=== PATIENT | female | born 1935 | race African-American/Black ===

== ENCOUNTER 2024-01-13 21:28 | Inpatient (IN) | payer BC ==
[~2024-01-13] VITALS: Ht 157.5 cm; Wt 84.8 kg
[2024-01-13 21:34] VITALS: O2SAT 100
[2024-01-13 22:21] LABS: BASOPHILS % 0.7 % (0.0-2.0); EOSINOPHILS % 0.9 % (0.0-5.0); HEMATOCRIT. 40.6 % (36.0-48.0); HEMOGLOBIN. 13.2 g/dL (12.0-16.0); LYMPHOCYTES % 33.1 % (20.0-50.0); MEAN CORPUSCULAR HEMOGLOBIN 29.3 pg (28.0-32.0); MEAN CORPUSCULAR HGB CONC 32.4 g/dL (31.0-37.0); MEAN CORPUSCULAR VOLUME 90.3 fL (81.0-99.0); MEAN PLATELET VOLUME 10.8 fl (7.4-10.4); MONOCYTES % 11.8 % (2.0-8.0); NEUTROPHILS % 53.5 % (40.0-76.0); PLATELET 142 x1000/uL (130-400); RED CELL DISTRIBUTION WIDTH 15.8 % (11.6-14.6); WHITE BLOOD COUNT 7.2 x1000/uL (4.5-11.0)
[2024-01-13 22:28] LABS: PROTHROMBIN TIME 10.9 sec (9.6-11.0)
[2024-01-13 22:31] LABS: ALANINE AMINOTRANSFERASE 21 IU/L (10-49); ALBUMIN 3.9 g/dL (3.2-4.8); ASPARTATE AMINOTRANSFERASE 31 IU/L (<34); BILIRUBIN TOTAL 0.3 mg/dL (0.1-1.0); CALCIUM 8.2 mg/dL (8.7-10.4); CARBON DIOXIDE 24 mEq/L (21-32); CHLORIDE 108 mEq/L (98-107); GLUCOSE 80 mg/dL (70-105); POTASSIUM 4.9 mEq/L (3.5-5.1); PROTEIN TOTAL 6.9 g/dL (6.0-8.3); SODIUM 137 mEq/L (136-145); UREA NITROGEN BLOOD 21 mg/dL (9-23)
[2024-01-13 22:32] LABS: TROPONIN I HIGH SENSITIVITY < 4 ng/L (3.0-34)
[2024-01-14 00:06] LABS: TROPONIN I HIGH SENSITIVITY < 4 ng/L (3.0-34)
[2024-01-14 01:25] LABS: TROPONIN I HIGH SENSITIVITY < 4 ng/L (3.0-34)
[2024-01-14] MEDS ORDERED: ALEN70TA79 PO (10:05)
[2024-01-14] MEDS ORDERED: HYDR-4005 PO (10:21)
[2024-01-14] MEDS ORDERED: ATOR20TA65 PO (10:21)
[2024-01-14] MEDS ORDERED: DILT240C96 PO (10:21)
[2024-01-14] MEDS ORDERED: LEVO100T9 PO (10:21)
[2024-01-14] MEDS ORDERED: INSU100I28 SQ (10:21)
[2024-01-14] MEDS ORDERED: METFORMIN XR PO (10:21)
[2024-01-14] MEDS ORDERED: INSU100V43 SQ ×2 (10:21)
[2024-01-14] MEDS ORDERED: APIX5TAB MT (10:21)
[2024-01-14] MEDS ORDERED: FURO20TA4 PO (10:30)
[2024-01-14] MEDS ORDERED: CYCL5.5D EACHEYE (10:30)
[2024-01-14] MEDS ORDERED: OMEP40CA20 PO (10:30)
[2024-01-14] MEDS ORDERED: SITA100T11 PO (10:30)
[2024-01-14] MEDS ORDERED: SPIR25TA6 PO (10:30)
[2024-01-14] MEDS ORDERED: FAMO40TA7 PO (10:30)
[2024-01-14] MEDS ORDERED: CYCL30DR EACHEYE (10:30)
[2024-01-14 11:00] VITALS: BP 144/85; PULSE 92; RESP 18; TEMP 97.5
[2024-01-14 11:16] VITALS: BP 144/85; PULSE 92; RESP 18; TEMP 97.5
[2024-01-14 16:00] VITALS: BP 144/74; PULSE 87; RESP 18; TEMP 96.3
[2024-01-14] MEDS: FUROSEMIDE 20MG TABLET PO SCH (16:04)
[2024-01-14] MEDS: SPIRONOLACTONE 25MG TABLET PO SCH (16:04)
[2024-01-14] MEDS: APIXABAN 5 MG TABLET PO SCH (19:13)
[2024-01-14] MEDS ORDERED: MEDICATION NOT ON FORMULARY EA (Cyclosporine (Restasis) 1 DROP) EACHEYE PRN (19:45)
[2024-01-14] MEDS ORDERED: METFORMIN 1000 MG PO SCH (19:45)
[2024-01-14] MEDS ORDERED: MEDICATION NOT ON FORMULARY EA (Alendronate Sodium 70 MG) PO SCH (19:45)
[2024-01-14 20:00] VITALS: BP 149/79; PULSE 82; RESP 18; TEMP 98.6
[2024-01-14] MEDS ORDERED: DEXTROSE 50% WATER 50ML SYRINGE IV PRN (20:00)
[2024-01-14] MEDS ORDERED: NALOXONE HCL 0.4MG/ML VIAL IV PRN (20:15)
[2024-01-14] MEDS: BLOOD SUGAR DIAGNOSTIC STRIP TEST SCH (21:46)
[2024-01-14] MEDS: ATORVASTATIN CALCIUM 20MG TABLET PO SCH (21:47)
[2024-01-14] MEDS: INSULIN LISPRO 100 UNITS/ML SUBCUT SCH (21:50)
[2024-01-15] VITALS: BP 120/78; PULSE 82; RESP 18; TEMP 97
[2024-01-15 04:00] VITALS: BP 110/71; PULSE 87; RESP 18; TEMP 98.6
[2024-01-15] MEDS: HYDROCODONE/ACETAMINOPHEN 7.5/325MG TABLET PO PRN (04:42)
[2024-01-15] MEDS: LEVOTHYROXINE SODIUM 200MCG TABLET PO SCH (06:37)
[2024-01-15] MEDS: LEVOTHYROXINE SODIUM 25MCG TABLET PO SCH (06:37)
[2024-01-15 07:04] LABS: BASOPHILS % 1.1 % (0.0-2.0); CALCIUM 8.8 mg/dL (8.7-10.4); CARBON DIOXIDE 26 mEq/L (21-32); CHLORIDE 106 mEq/L (98-107); CREATININE 0.8 mg/dL (0.6-1.0); DIFFERENTIAL COMMENT 0; EOSINOPHILS % 1.1 % (0.0-5.0); GLUCOSE 119 mg/dL (70-105); HEMOGLOBIN. 14.8 g/dL (12.0-16.0); LYMPHOCYTES % 30.8 % (20.0-50.0); MEAN CORPUSCULAR HEMOGLOBIN 29.8 pg (28.0-32.0); MEAN CORPUSCULAR HGB CONC 33.5 g/dL (31.0-37.0); MEAN CORPUSCULAR VOLUME 88.7 fL (81.0-99.0); MEAN PLATELET VOLUME 11.6 fl (7.4-10.4); MONOCYTES % 12.4 % (2.0-8.0); NEUTROPHILS % 54.6 % (40.0-76.0); PLATELET 127 x1000/uL (130-400); POTASSIUM 4.3 mEq/L (3.5-5.1); RED BLOOD CELL COUNT 4.96 mill/uL (4.2-5.4); RED CELL DISTRIBUTION WIDTH 15.7 % (11.6-14.6); SODIUM 139 mEq/L (136-145); THYROID STIMULATING HORMONE 0.53 uIU/mL (0.55-4.78); UREA NITROGEN BLOOD 15 mg/dL (9-23); WHITE BLOOD COUNT 6.1 x1000/uL (4.5-11.0)
[2024-01-15] MEDS ORDERED: MEDICATION NOT ON FORMULARY EA (Insulin Glargine,Hum.rec.anlog (Lantus Solostar) 16 UNIT SQ SCH (07:10)
[2024-01-15] MEDS: METFORMIN HCL 500MG TABLET PO SCH (07:40)
[2024-01-15 08:00] VITALS: BP 104/52; PULSE 79; RESP 20; TEMP 98
[2024-01-15] MEDS: INSULIN LISPRO 100 UNITS/ML SUBCUT SCH (08:45)
[2024-01-15] MEDS: ALENDRONATE SODIUM 35MG TABLET PO SCH (08:45)
[2024-01-15] MEDS: OMEPRAZOLE 20MG CAPSULE EXTENDED RELEASE PO SCH (08:46)
[2024-01-15] MEDS ORDERED: MEDICATION NOT ON FORMULARY EA (Omeprazole 40 MG) PO SCH (09:00)
[2024-01-15] MEDS ORDERED: MEDICATION NOT ON FORMULARY EA (Sitagliptin Phosphate (Januvia) 100 MG) PO SCH (09:00)
[2024-01-15] MEDS ORDERED: [UNRECOGNIZED DRUG - OTHER] SUBCUT SCH (09:00)
[2024-01-15] MEDS: INSULIN GLARGINE 100 UNITS/ML SUBCUT SCH (09:32)
[2024-01-15 12:00] VITALS: BP 125/75; PULSE 85; RESP 22; TEMP 98
[2024-01-15] MEDS: METOPROLOL TARTRATE 25MG TABLET PO SCH (13:10)
[2024-01-15 16:00] VITALS: BP 113/68; PULSE 91; RESP 20; TEMP 98
[2024-01-15 20:00] VITALS: BP 129/72; PULSE 87; RESP 18; TEMP 98.2
[2024-01-16] VITALS: BP 112/61; PULSE 89; RESP 18; TEMP 98.1
[2024-01-16 04:00] VITALS: BP 118/71; PULSE 78; RESP 19; TEMP 98.8
[2024-01-16 08:00] VITALS: BP 140/66; PULSE 83; RESP 20; TEMP 97.8
[2024-01-16] MEDS ORDERED: LINAGLIPTIN 5MG TABLET PO SCH (09:00)
[2024-01-16 09:12] VITALS: PULSE 90
[2024-01-16] MEDS ORDERED: METO25TA6 MT (09:57)
== END 2024-01-16 15:00 | disposition home or self-care (01) | DRG 310 ==
LOC: ER 21:28 → EDBEDREQ 01-14 00:29 → 8WST 01-14 09:32
PROVIDERS: ADMIT Internal Medicine; ATTEND Internal Medicine
DX: I48.19 Other persistent atrial fibrillation (principal); I10 Essential (primary) hypertension; E03.9 Hypothyroidism, unspecified; E11.9 Type 2 diabetes mellitus without complications; R00.1 Bradycardia, unspecified; R07.89 Other chest pain
CPT/HCPCS: 36415; 71045; 80048; 80053; 82962; 83036; 83605; 83880; 84443; 84484; 85025; 93306; 99285; J1815